=== PATIENT | female | born 1960 | race Caucasian/White ===

== ENCOUNTER 2016-07-09 09:24 | Inpatient (IN) | payer MEDICARE, OTHER ==
--- NOTE | ~2016-07-09 | DS ---
Discharge Summary [facility] [address] [place]. [address] NAME: PILY ALEXANDER : 60 STATUS : [facility]M [facility]#: [id number] AGE: 56 ADM/REG DATE : 07/09/16 MR#: [id number] REPORT SERV DATE: 07/11/16 DICTATED BY: Alex PIERRE DATE: 07/11/16 REPORT STATUS : Draft TRANSCRIBED BY: YAMILE DATE: 07/11/16 ADMISSION DATE: 07/09/2016 DISCHARGE DATE: 07/11/2016 DIAGNOSES AT DISCHARGE: 1. Acute kidney injury, resolved. 2. Hypotension, resolved. 3. Chronic obstructive pulmonary disease. 4. Chronic pain syndrome. 5. Bipolar disorder. 6. Sleep apnea. 7. Obesity. CONSULTS: None. PROCEDURES: None. BRIEF SUMMARY: A 56-year-old female patient with chronic pain syndrome was admitted with acute kidney injury and hypotension. The patient had her home antihypertensives held along with all nephrotoxins. She was treated with IV fluids with prompt resolution of her acute kidney injury with return to normal renal function. The patient did have an ACTH stim test done which showed normal adrenal function. Once her renal function returned to normal, the patient was felt stable to discharge home. She will continue to avoid all nephrotoxins. We will not resume her blood pressure medicines at this time as she still has a normal to low blood pressure despite being off these medications. She will follow up with her primary care provider in approximately seven days. The patient had a presumptive UTI on admission. Culture remained negative. She did receive three days of IV Rocephin and this will be discontinued at discharge. Significant labs at discharge show a BUN of 9, creatinine 0.66. Again, the patient will avoid nonsteroidal antiinflammatory agents, Malin 2 inhibitor. She will no longer take GISELE inhibitor, hydrochlorothiazide. She will continue her current home O2 per previous settings. Further recommendations for treatment of her blood pressure or consideration for future medications, pending outpatient followup with her primary care provider. Of note, greater than 30 minutes were required to review medical record, to reconcile discharge medications, and to residential youth counselor the patient regarding medications to avoid and changes in her home med list. KEHINDE/YAMILE Alex Pierre M.D. / [id number] CC: Discharge Summary [address] [place]. [address] NAME: PILY ALEXANDER : 60 STATUS : ADM IN PAT#: [id number] AGE: 56 ADM/REG DATE : 07/09/16 MR#: [id number] REPORT SERV DATE: 07/11/16 DICTATED BY: Alex PIERRE DATE: 07/11/16 REPORT STATUS : Draft TRANSCRIBED BY: MODL DATE: 07/11/16 Alex Pierre M.D.
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
[2016-07-09 08:03] LABS: BASOPHILS 0.2 %; BASOPHILS ABSOLUTE 0.02 10/3/uL (0.0-0.16); EOSINOPHILS 1.5 %; EOSINOPHILS ABSOLUTE 0.16 10/3/uL (0.0-0.53); HEMATOCRIT 44.5 % (36.0-48.0); HEMOGLOBIN 15.1 g/dL (12.0-16.0); IMMATURE GRANULOCYTES 0.7 %; IMMATURE GRANULOCYTES ABSOLUTE 0.07 10/3/uL (0.0-0.11); LYMPHOCYTES 19.9 %; LYMPHOCYTES ABSOLUTE 2.07 10/3/uL (0.67-4.30); MEAN CORPUS HGB CONC 33.9 g/dL (32.0-36.0); MEAN CORPUSCULAR HEMOGLOB 31.7 pg (26.0-34.0); MEAN CORPUSCULAR VOLUME 93.3 fL (80-100); MEAN PLATELET VOLUME 10.6 fL (9.2-13.0); MONOCYTES 9.3 %; MONOCYTES ABSOLUTE 0.97 10/3/uL (0.21-1.20); NEUTROPHILS 68.4 %; NEUTROPHILS ABSOLUTE 7.09 10/3/uL (2.02-8.40); PLATELET COUNT 162 10/3/uL (150-400); RBC DISTRIBUTION WIDTH 15.1 % (12.0-16.0); RED CELL COUNT 4.77 10/6/uL (4.0-5.6); WHITE BLOOD CELLS 10.4 10/3/uL (4.5-10.5)
[2016-07-09 08:14] LABS: PARTIAL THROMBO TIME 32.9 SEC (22.5-37.2); PROTIME (NOT ORD) 13.1 SEC (12.0-14.5)
[2016-07-09 08:19] LABS: ACETAMINOPHEN LEVEL (TYLENOL) < 2.0 MCG/ML (10.0-20.0); ALBUMIN 3.3 G/DL (3.5-5.0); ALCOHOL < 10 MG/DL (0); ALKALINE PHOSPHATASE 106 U/L (45-117); BUN (BLOOD UREA NITROGEN) 21 MG/DL (6-23); CALCIUM, SERUM 8.6 MG/DL (8.5-10.4); CHEST PAIN PROFILE TAT 0 Hrs 22 Mins; CHLORIDE, SERUM 96 MMOL/L (96-112); CO2 (CARBON DIOXIDE) 24 MMOL/L (24-34); CREATININE 3.47 MG/DL (0.55-1.02); DIRECT BILIRUBIN < 0.1 MG/DL (0.0-0.4); GFR AFRICAN AMERICAN 16 ML/MIN (>=60); GFR NON AFRICAN AMERICAN 14 ML/MIN (>=60); GLUCOSE, SERUM 104 MG/DL (60-99); INDIRECT BILIRUBIN(NOT ORDER) 0.3 MG/DL (0.1-0.9); POTASSIUM, SERUM 3.6 MMOL/L (3.5-5.3); SGOT(AST) 34 U/L (5-40); SGPT(ALT) 22 U/L (5-65); SODIUM, SERUM 132 MMOL/L (135-148); TOTAL BILIRUBIN 0.4 MG/DL (0-1.2); TROPONIN I 0.09 NG/ML (<0.05)
[2016-07-09 08:21] LABS: ASCORBIC ACID (UR NOT ORDER) NEG (NEG); BILIRUBIN, URINE NEGATIVE (NEG); ER URINALYSIS TAT 0 Hrs 18 Mins; KETONE, URINE NEGATIVE (NEG); LEUKOCYTE ESTERASE(NOT OR LARGE (NEG); NITRITE (URINE) NEG (NEG); WBC (NOT ORDERED) (RFLEX) 33 (0-5)
[2016-07-09 08:44] LABS: AMPHETAMINES (NOT ORD) NEG (NEG); BARBITURATES (NOT ORDERED NEG (NEG); BENZODIAZEPINES (NOT ORD) NEG (NEG); CANNABINOIDS (THC) NEG (NEG); COCAINE (NOT ORDERED) NEG (NEG); OPIATES POS (NEG); PHENCYCLIDINE(PCP) NEG (NEG); TRICYCLICS NEG (NEG)
[~2016-07-09 09:24] MED LIST: ABILIFY10 PO; ABILIFY20 MG PO; ADVAIR250 INH; AMB10 PO; ASAB PO; CLARIT10 PO; COREG12 PO; COREG3 PO; CRESTOR40 MG PO; DALIRESP500 MCG PO; DELTADOSE PO; DEXEDRINE15 MG PO; DSS PO; DUONEB INH; IMDUR30 PO; K-TABS10 MEQ PO; L40 PO; LAMICTAL150 MG PO; LIPITOR20 PO; METHOC750B PO; MIRALAXPKT PO; MONOKET PO; MUCINEX600 MG PO; NASONEX NAS; NEUR300 PO; NICODERM C14 MG/24 H TOP; NICODERM C21 MG/241 TOP; OPANA ER15 MG PO; OPANA ER30 MG PO; OPANA ER40 MG PO; ORAMORPH SR15 MG PO; PEP20 PO; PRIN10 PO; PRIN20 PO; PROVHFA INH; ROXICODONE30 MG PO; SINGULAIR1 PO; SPIRIVA INH; STERAPRED DS10 MG; TRAZ50 PO; TRAZODONE150 MG PO; TRAZODONE300 MG PO; TRILIPIX135 MG PO; VIB100 PO; XANAX1 MG PO; Z-PAK PO; ZOL100 PO; imdur PO
[2016-07-09] MEDS ORDERED: OPANA ER40 MG PO (09:39)
[2016-07-09] MEDS ORDERED: MOBIC7.5 PO (09:40)
[2016-07-09] MEDS ORDERED: NEUR300 PO (09:40)
[2016-07-09] MEDS ORDERED: ROXICODONE30 MG PO (09:40)
[2016-07-09] MEDS ORDERED: NALOXONE IM (09:48)
[2016-07-09] MEDS ORDERED: OLOPATADINE 0.6% NAS (09:49)
[2016-07-09] MEDS ORDERED: PROAIR HFA INH (09:50)
[2016-07-09] MEDS ORDERED: ZOL100 PO (09:51)
[2016-07-09] MEDS ORDERED: DULERA 200 MCG/13 GM INH (09:51)
[2016-07-09] MEDS ORDERED: DEXEDRINE15 MG PO (09:51)
[2016-07-09] MEDS ORDERED: ABILIFY20 MG PO (09:51)
[2016-07-09] MEDS ORDERED: XANAX1 MG PO (09:52)
[2016-07-09] MEDS ORDERED: DALIRESP500 MCG PO (09:52)
[2016-07-09] MEDS ORDERED: TRAZODONE150 MG PO (09:52)
[2016-07-09] MEDS ORDERED: SPIRIVA RESPIMAT INH (09:53)
[2016-07-09] MEDS ORDERED: PRINZIDE1 TA1 PO (09:53)
[2016-07-09] MEDS ORDERED: AMB10 PO (09:53)
[2016-07-09] MEDS ORDERED: CIP5 PO (09:54)
[2016-07-09 11:50] LABS: ALLENS TEST Pos; BE (BASE EXCESS) -7.2 MEQ/L (0 +/- 2.5); CARBOXYHEMOGLOBIN 11.2 % (0-3); HCO3 (ACTUAL BICARBONATE) 19.9 MEQ/L (23-27); HEMOBLOGIN CONTENT 14.4 G/DL (12-16); INSTRUMENT SERIAL # 8087; O2 CONTENT 16.8 VOL% (18-24); OPERATOR ID 14382; PCO2 (CO2 TENSION) 46 MMHG (35-45); PO2 (O2 TENSION) 74 MMHG (79-93); SAMPLE Arterial; pH 7.25 (7.37-7.43)
[2016-07-09 13:52] LABS: CPK 955 U/L (0-200)
[2016-07-09 18:56] LABS: TROPONIN I 0.07 NG/ML (<0.05)
[2016-07-09 19:20] LABS: PROCALCITONIN <0.05 ng/mL (<0.5)
[2016-07-10 01:45] LABS: BASOPHILS 0.1 %; BASOPHILS ABSOLUTE 0.01 10/3/uL (0.0-0.16); EOSINOPHILS 0.7 %; EOSINOPHILS ABSOLUTE 0.07 10/3/uL (0.0-0.53); HEMATOCRIT 42.9 % (36.0-48.0); HEMOGLOBIN 14.3 g/dL (12.0-16.0); IMMATURE GRANULOCYTES 0.3 %; IMMATURE GRANULOCYTES ABSOLUTE 0.03 10/3/uL (0.0-0.11); LYMPHOCYTES 12.8 %; LYMPHOCYTES ABSOLUTE 1.31 10/3/uL (0.67-4.30); MEAN CORPUS HGB CONC 33.3 g/dL (32.0-36.0); MEAN CORPUSCULAR HEMOGLOB 31.8 pg (26.0-34.0); MEAN CORPUSCULAR VOLUME 95.3 fL (80-100); MEAN PLATELET VOLUME 10.1 fL (9.2-13.0); MONOCYTES 7.4 %; MONOCYTES ABSOLUTE 0.76 10/3/uL (0.21-1.20); NEUTROPHILS 78.7 %; NEUTROPHILS ABSOLUTE 8.03 10/3/uL (2.02-8.40); PLATELET COUNT 150 10/3/uL (150-400); RBC DISTRIBUTION WIDTH 15.2 % (12.0-16.0); WHITE BLOOD CELLS 10.2 10/3/uL (4.5-10.5)
[2016-07-10 01:47] LABS: MANUAL DIFF NO %
[2016-07-10 02:04] LABS: CALCIUM, SERUM 8.3 MG/DL (8.5-10.4); CHLORIDE, SERUM 108 MMOL/L (96-112); CO2 (CARBON DIOXIDE) 27 MMOL/L (24-34)
[2016-07-10 02:07] LABS: BUN (BLOOD UREA NITROGEN) 13 MG/DL (6-23); CREATININE 1.21 MG/DL (0.55-1.02); GFR AFRICAN AMERICAN 58 ML/MIN (>=60); GFR NON AFRICAN AMERICAN 50 ML/MIN (>=60); GLUCOSE, SERUM 148 MG/DL (60-99); SODIUM, SERUM 142 MMOL/L (135-148); TROPONIN I 0.07 NG/ML (<0.05)
[2016-07-10 13:28] LABS: CREATININE, URINE 33.9 MG/DL
[2016-07-11 05:34] LABS: CALCIUM, SERUM 8.4 MG/DL (8.5-10.4); CHLORIDE, SERUM 108 MMOL/L (96-112); CO2 (CARBON DIOXIDE) 25 MMOL/L (24-34); POTASSIUM, SERUM 3.3 MMOL/L (3.5-5.3); SODIUM, SERUM 141 MMOL/L (135-148)
[2016-07-11 05:35] LABS: BUN (BLOOD UREA NITROGEN) 9 MG/DL (6-23); CREATININE 0.66 MG/DL (0.55-1.02); GFR AFRICAN AMERICAN 114 ML/MIN (>=60); GFR NON AFRICAN AMERICAN 99 ML/MIN (>=60); GLUCOSE, SERUM 91 MG/DL (60-99); ULTRASENSITIVE TSH 0.056 MCIU/ML (0.358-3.740)
[2016-07-11 09:34] LABS: BASOPHILS 0.2 %; BASOPHILS ABSOLUTE 0.02 10/3/uL (0.0-0.16); EOSINOPHILS 1.2 %; EOSINOPHILS ABSOLUTE 0.11 10/3/uL (0.0-0.53); HEMOGLOBIN 12.8 g/dL (12.0-16.0); IMMATURE GRANULOCYTES 0.2 %; IMMATURE GRANULOCYTES ABSOLUTE 0.02 10/3/uL (0.0-0.11); LYMPHOCYTES 19.2 %; LYMPHOCYTES ABSOLUTE 1.73 10/3/uL (0.67-4.30); MEAN CORPUS HGB CONC 33.2 g/dL (32.0-36.0); MEAN CORPUSCULAR VOLUME 93.2 fL (80-100); MEAN PLATELET VOLUME 10.5 fL (9.2-13.0); MONOCYTES 6.7 %; NEUTROPHILS 72.5 %; NEUTROPHILS ABSOLUTE 6.53 10/3/uL (2.02-8.40); PLATELET COUNT 141 10/3/uL (150-400); RBC DISTRIBUTION WIDTH 15.1 % (12.0-16.0); RED CELL COUNT 4.13 10/6/uL (4.0-5.6)
[2016-07-11 09:35] LABS: HEMATOCRIT 38.5 % (36.0-48.0); MANUAL DIFF NO %
== END 2016-07-11 15:28 | disposition home or self-care (01) | DRG 683 ==
LOC: ER 09:24 → IMCU 17:59 → 6NO 07-10 20:08
PROVIDERS: Emergency Medicine; Internal Medicine; Specialist
PROC: 02HV33Z Insertion of Infusion Device into Superior Vena Cava, Percutaneous Approach (ICD-10-PCS; principal; 2016-07-09)
PROC: 4A02X4A Measurement of Cardiac Electrical Activity, Guidance, External Approach (ICD-10-PCS; 2016-07-09)
DX: N17.9 Acute kidney failure, unspecified (principal); N39.0 Urinary tract infection, site not specified; J84.9 Interstitial pulmonary disease, unspecified; Z99.81 Dependence on supplemental oxygen; T39.395A Adverse effect of other nonsteroidal anti-inflammatory drugs [NSAID], initial encounter; T46.4X5A Adverse effect of angiotensin-converting-enzyme inhibitors, initial encounter; G89.4 Chronic pain syndrome; J44.9 Chronic obstructive pulmonary disease, unspecified; F31.9 Bipolar disorder, unspecified; F41.9 Anxiety disorder, unspecified; E66.9 Obesity, unspecified; E78.00 Pure hypercholesterolemia, unspecified; F17.210 Nicotine dependence, cigarettes, uncomplicated; G47.33 Obstructive sleep apnea (adult) (pediatric); R51 Headache; Z68.39 Body mass index [BMI] 39.0-39.9, adult; Z87.440 Personal history of urinary (tract) infections; Z90.710 Acquired absence of both cervix and uterus; Z90.49 Acquired absence of other specified parts of digestive tract; Z88.0 Allergy status to penicillin; Z82.49 Family history of ischemic heart disease and other diseases of the circulatory system; Z80.42 Family history of malignant neoplasm of prostate; Z80.1 Family history of malignant neoplasm of trachea, bronchus and lung
CPT/HCPCS: 36569; 70450; 71010; 72100; 76775; 80048; 80076; 80305; 80307; 81001; 82533; 82550; 82570; 82805; 83605; 83735; 83935; 84145; 84300; 84443; 84484; 85025; 85610; 85730; 87040; 87086; 87641; 89190; 93005; 94640; 96361; 96374; 96375; 99291; A9270-GY; C1751; J0834

== ENCOUNTER 2016-07-18 23:42 | Emergency (ER) | payer OTHER ==
[2016-07-18 21:09] LABS: BASOPHILS 0.3 %; BASOPHILS ABSOLUTE 0.02 10/3/uL (0.0-0.16); EOSINOPHILS 0.8 %; EOSINOPHILS ABSOLUTE 0.05 10/3/uL (0.0-0.53); ER CBC TAT 0 Hrs 13 Mins; HEMATOCRIT 41.2 % (36.0-48.0); HEMOGLOBIN 13.4 g/dL (12.0-16.0); IMMATURE GRANULOCYTES 0.9 %; IMMATURE GRANULOCYTES ABSOLUTE 0.06 10/3/uL (0.0-0.11); LYMPHOCYTES ABSOLUTE 1.28 10/3/uL (0.67-4.30); MANUAL DIFF NO %; MEAN CORPUS HGB CONC 32.5 g/dL (32.0-36.0); MEAN CORPUSCULAR HEMOGLOB 31.2 pg (26.0-34.0); MEAN PLATELET VOLUME 9.9 fL (9.2-13.0); MONOCYTES 10.3 %; MONOCYTES ABSOLUTE 0.66 10/3/uL (0.21-1.20); NEUTROPHILS 67.7 %; NEUTROPHILS ABSOLUTE 4.32 10/3/uL (2.02-8.40); PLATELET COUNT 178 10/3/uL (150-400); RED CELL COUNT 4.29 10/6/uL (4.0-5.6); WHITE BLOOD CELLS 6.4 10/3/uL (4.5-10.5)
[2016-07-18 21:26] LABS: A/G RATIO 0.8 (0.7-1.9); ALBUMIN 3.1 G/DL (3.5-5.0); BUN (BLOOD UREA NITROGEN) 10 MG/DL (6-23); CALCIUM, SERUM 8.7 MG/DL (8.5-10.4); CHLORIDE, SERUM 103 MMOL/L (96-112); CREATININE 0.69 MG/DL (0.55-1.02); GFR AFRICAN AMERICAN 113 ML/MIN (>=60); GFR NON AFRICAN AMERICAN 97 ML/MIN (>=60); GLOBULIN 3.8 G/DL (2.5-4.1); POTASSIUM, SERUM 3.5 MMOL/L (3.5-5.3); SGOT(AST) 30 U/L (5-40); SGPT(ALT) 29 U/L (5-65); SODIUM, SERUM 142 MMOL/L (135-148); TOTAL BILIRUBIN 0.5 MG/DL (0-1.2); TOTAL PROTEIN 6.9 G/DL (6.0-8.5)
[2016-07-18 21:28] LABS: ALKALINE PHOSPHATASE 122 U/L (45-117); CO2 (CARBON DIOXIDE) 31 MMOL/L (24-34); GLUCOSE, SERUM 114 MG/DL (60-99)
[~2016-07-18 23:42] MED LIST changes: +CIP5 PO; +DULERA 200 MCG/13 GM INH; +MOBIC7.5 PO; +NALOXONE IM; +OLOPATADINE 0.6% NAS; +PRINZIDE1 TA1 PO; +PROAIR HFA INH; +SPIRIVA RESPIMAT INH
== END 2016-07-19 00:10 | disposition home or self-care (01) ==
LOC: ER 23:42
PROVIDERS: Emergency Medicine
DX: J44.1 Chronic obstructive pulmonary disease with (acute) exacerbation (principal); F17.200 Nicotine dependence, unspecified, uncomplicated; I10 Essential (primary) hypertension; Z88.0 Allergy status to penicillin; Z88.5 Allergy status to narcotic agent; Z79.899 Other long term (current) drug therapy
CPT/HCPCS: 71020; 80053; 85025; 87040; 93005; 94640; 96372; 99285